=== PATIENT | female | born 1985 | race Caucasian/White ===

== ENCOUNTER → 2016-11-01 | Outpatient (CLI) | payer BC | END | disposition home or self-care (01) | LOC: LABWHC1 17:26 | PROVIDERS: ATTEND Internal Medicine Endocrinology, Diabetes & Metabolism | DX: E03.8 Other specified hypothyroidism (principal) | CPT/HCPCS: 36415; 84439; 84443; 86376 ==

== ENCOUNTER → 2017-05-16 | Outpatient (CLI) | payer BC ==
[2017-05-16 18:28] LABS: ALT 35 U/L (9-52); AST 21 U/L (14-36); Alkaline Phosphatase 75 U/L (38-126); Anion Gap 9 mmol/L; Blood Urea Nitrogen 8 mg/dL (7-17); Calcium 9.4 mg/dL (8.4-10.2); Carbon Dioxide 26 mmol/L (22-30); Chloride 103 mmol/L (98-107); Cholesterol 174 mg/dL (<200); Glucose 136 mg/dL (74-99); HDL Cholesterol 54 mg/dL (40-60); Non-African American GFR(MDRD) >60 (>60 ml/min/1.73 sqM); Potassium 4.1 mmol/L (3.5-5.1); Sodium 138 mmol/L (137-145); Total Bilirubin 0.6 mg/dL (0.2-1.3); Total Protein 7.4 g/dL (6.3-8.2)
[2017-05-17 03:35] LABS: Urine Creatinine 110.6 mg/dL
== END | disposition home or self-care (01) ==
LOC: LABWHC1 17:13
PROVIDERS: ATTEND Internal Medicine Endocrinology, Diabetes & Metabolism
DX: E10.65 Type 1 diabetes mellitus with hyperglycemia (principal); E03.8 Other specified hypothyroidism
CPT/HCPCS: 36415; 80053; 80061; 82043; 82570; 84443

== ENCOUNTER → 2018-02-15 | Outpatient (CLI) | payer BC ==
[2018-02-15 06:59] LABS: ALT 21 U/L (9-52); AST 15 U/L (14-36); Albumin 4.1 g/dL (3.5-5.0); Alkaline Phosphatase 69 U/L (38-126); Anion Gap 9 mmol/L; Blood Urea Nitrogen 8 mg/dL (7-17); Calcium 9.3 mg/dL (8.4-10.2); Carbon Dioxide 27 mmol/L (22-30); Chloride 102 mmol/L (98-107); Cholesterol 166 mg/dL (<200); Glucose 178 mg/dL (74-99); HDL Cholesterol 62 mg/dL (40-60); LDL Cholesterol,Calculated 85 mg/dL (0-99); Potassium 4.5 mmol/L (3.5-5.1); Sodium 138 mmol/L (137-145); Total Bilirubin 0.4 mg/dL (0.2-1.3); Triglycerides 94 mg/dL (<150)
[2018-02-15 12:53] LABS: Hemoglobin A1C 7.5 % (4.0-6.0)
== END | disposition home or self-care (01) ==
LOC: LABWHC1 06:32
PROVIDERS: ATTEND Internal Medicine Endocrinology, Diabetes & Metabolism
DX: E10.65 Type 1 diabetes mellitus with hyperglycemia (principal); E03.8 Other specified hypothyroidism
CPT/HCPCS: 36415; 80053; 80061; 82043; 82570; 83036; 84443

== ENCOUNTER → 2018-03-02 | Outpatient (CLI) | payer BC ==
[2018-03-02 12:28] LABS: Appearance,Urine Cloudy (Clear); Bacteria,Urine Rare /hpf; Bilirubin,Urine Negative (Negative); Blood,Urine Negative (Negative); Color,Urine Yellow; Glucose,Urine (UA) 3+ (Negative); Ketones,Urine Trace (Negative); Leukocyte Esterase,Urine Large (Negative); Mucus,Urine Rare /hpf; Nitrite,Urine Positive (Negative); Protein,Urine Trace (Negative); RBC,Urine 1 /hpf (0-5); Specific Gravity,Urine 1.015 (1.001-1.035); Squamous Epithelial Cell,Urine 3 /hpf (0-4); Urobilinogen,Urine <2.0 mg/dL (<2.0); WBC,Urine 4 /hpf (0-5)
[2018-03-02 16:20] LABS: Urine Alcohol Negative (Negative); Urine Barbiturate Negative (Negative); Urine Cocaine Negative (Negative); Urine Methadone Negative (Negative); Urine Opiates Negative (Negative); Urine Phencyclidine Negative (Negative)
[2018-03-03 14:39] LABS: C. trachomatis,PCR Negative (Neg,Equiv); Chlamydia trachomatis Source Urine; N. gonorrhoeae,PCR Negative (Neg,Equiv); Neisseria Source Urine
[2018-03-04 04:04] LABS: Herpes simplex I and/or II IgM 0.64 INDEX (<=0.90); Herpes simplex IgG I Ab 0.05 (< or = 0.90); Herpes simplex IgG II Ab 0.15 (< or = 0.90)
[2018-03-04 04:29] LABS: Lead, Blood <0.5 ug/dL (<5.0)
[2018-03-04 12:37] LABS: HIV AB P24 Non-Reactive (Non-Reactive); HIV P24 AG Non-Reactive (Non-Reactive)
== END | disposition home or self-care (01) ==
LOC: LABWHC1 11:54
PROVIDERS: ATTEND Obstetrics & Gynecology
DX: Z11.3 Encounter for screening for infections with a predominantly sexual mode of transmission (principal); Z33.1 Pregnant state, incidental
CPT/HCPCS: 36415; 80306; 81001; 82947; 83655; 84443; 84702; 86694; 86695; 86696; 86787; 87086; 87390; 87491; 87591

== ENCOUNTER → 2018-03-16 | Outpatient (CLI) | payer BC ==
[2018-03-16 10:39] LABS: Collection Time,Urine 24 hrs; Total Volume 24 Hour,Urine 1650 mls (800-1800)
[2018-03-16 10:55] LABS: Total Protein 24 Hour,Urine 231 mg/24hr (42.0-225.0)
[2018-03-16 10:56] LABS: Creatinine 24 Hour,Urine 1148.4 mg/24hr (800.0-1800.0)
[2018-03-16 11:21] LABS: Creatinine 24 Hour,Urine 1148.4 mg/24hr (800.0-1800.0)
== END | disposition home or self-care (01) ==
LOC: LABWHC1 10:21
PROVIDERS: ATTEND Obstetrics & Gynecology
DX: O24.019 Pre-existing type 1 diabetes mellitus, in pregnancy, unspecified trimester (principal); Z3A.00 Weeks of gestation of pregnancy not specified
CPT/HCPCS: 36415; 81050; 82570; 82575; 84156; 84450; 84460

== ENCOUNTER → 2018-04-01 | Outpatient (CLI) | payer BC ==
[2018-04-01 13:43] LABS: Hemoglobin A1C 6.1 % (4.0-6.0)
== END | disposition home or self-care (01) ==
LOC: LABWHC1 07:16
PROVIDERS: ATTEND Internal Medicine Endocrinology, Diabetes & Metabolism
DX: E10.65 Type 1 diabetes mellitus with hyperglycemia (principal)
CPT/HCPCS: 36415; 83036; 84443

== ENCOUNTER → 2018-05-06 | Outpatient (CLI) | payer BC | END | disposition home or self-care (01) | LOC: LABWHC1 16:23 | PROVIDERS: ATTEND Internal Medicine Endocrinology, Diabetes & Metabolism | DX: E10.65 Type 1 diabetes mellitus with hyperglycemia (principal) | CPT/HCPCS: 36415; 84443 ==

== ENCOUNTER → 2018-07-01 | Outpatient (CLI) | payer BC | END | disposition home or self-care (01) | LOC: LABWHC1 12:56 | PROVIDERS: ATTEND Internal Medicine Endocrinology, Diabetes & Metabolism | DX: E10.65 Type 1 diabetes mellitus with hyperglycemia (principal) | CPT/HCPCS: 36415; 83036 ==

== ENCOUNTER → 2018-08-06 | Outpatient (CLI) | payer BC ==
[2018-08-07 05:02] LABS: Hemoglobin A1C 5.9 % (4.0-6.0)
== END | disposition home or self-care (01) ==
LOC: LABWHC1 16:31
PROVIDERS: ATTEND Internal Medicine Endocrinology, Diabetes & Metabolism
DX: E03.8 Other specified hypothyroidism (principal); E10.65 Type 1 diabetes mellitus with hyperglycemia
CPT/HCPCS: 36415; 83036; 84443

== ENCOUNTER → 2018-08-15 | Outpatient (CLI) | payer BC ==
[2018-08-15 15:15] LABS: Basophils % (A) 0 %; Eosinophils # (A) 0.1 k/uL (0-0.7); Eosinophils % (A) 1 %; HCT 33.5 % (34.0-46.0); HGB 10.9 gm/dL (11.4-16.0); Lymphocytes # (A) 1.6 k/uL (1.0-4.8); Lymphocytes % (A) 17 %; MCHC 32.5 g/dL (31.0-37.0); MCV 98.5 fL (80.0-100.0); Macrocytosis Slight; Mean Platelet Volume 8.2; Monocytes # (A) 0.5 k/uL (0-1.0); Monocytes % (A) 5 %; Neutrophils # (A) 7.1 k/uL (1.3-7.7); Neutrophils % (A) 75 %; Platelet Count 208 k/uL (150-450); Poikilocytosis Slight; WBC 9.5 k/uL (3.8-10.6)
[2018-08-15 19:41] LABS: Total Volume 24 Hour,Urine 2025 mL
[2018-08-15 20:15] LABS: Creatinine 24 Hour,Urine 1.03 g/24Hr (0.80-1.80)
== END | disposition home or self-care (01) ==
LOC: LABWHC1 14:46
PROVIDERS: ATTEND Obstetrics & Gynecology
DX: O13.9 Gestational [pregnancy-induced] hypertension without significant proteinuria, unspecified trimester (principal); Z3A.00 Weeks of gestation of pregnancy not specified
CPT/HCPCS: 36415; 81050; 82565; 82570; 84156; 84450; 84460; 84520; 85025

== ENCOUNTER → 2019-02-07 | Outpatient (CLI) | payer BC ==
[2019-02-07 17:23] LABS: Albumin 4.2 g/dL (3.80-4.90); Albumin/Globulin Ratio 1.75 (1.60-3.17); Anion Gap 8.3 mmol/L (4.00-12.00); Calcium 9.4 mg/dL (8.7-10.3); Carbon Dioxide 25.7 mmol/L (21.6-31.8); Globulin 2.4 g/dL (1.6-3.3); LDL Cholesterol,Calculated 90.6 mg/dL (0.0-131.0); Potassium 4.3 mmol/L (3.5-5.5); Total Bilirubin 0.5 mg/dL (0.2-1.2); Total Protein 6.6 g/dL (6.2-8.2); VLDL Calculation 18.4 mg/dL (5.00-40.00)
[2019-02-07 19:11] LABS: Hemoglobin A1C 8.4 % (4.0-6.0)
== END | disposition home or self-care (01) ==
LOC: LABWHC1 10:26
PROVIDERS: ATTEND Internal Medicine Endocrinology, Diabetes & Metabolism
DX: E10.65 Type 1 diabetes mellitus with hyperglycemia (principal)
CPT/HCPCS: 36415; 80053; 80061; 82043; 82570; 83036; 84443

== ENCOUNTER → 2019-06-03 | Outpatient (CLI) | payer BC ==
[2019-06-03 17:47] LABS: Hemoglobin A1C 6.2 % (4.0-6.0)
== END | disposition home or self-care (01) ==
LOC: LABWHC1 07:17
PROVIDERS: ATTEND Internal Medicine Endocrinology, Diabetes & Metabolism
DX: E10.65 Type 1 diabetes mellitus with hyperglycemia (principal)
CPT/HCPCS: 36415; 83036; 84443

== ENCOUNTER → 2019-09-14 | Outpatient (CLI) | payer BC | END | disposition home or self-care (01) | LOC: LABMAIN 14:59 | PROVIDERS: ATTEND Internal Medicine Endocrinology, Diabetes & Metabolism | DX: Z53.9 Procedure and treatment not carried out, unspecified reason (principal) ==

== ENCOUNTER → 2020-03-02 | Outpatient (CLI) | payer BC ==
[2020-03-02 16:51] LABS: African American GFR (CKD) 132.9 (60.0-200.0); Albumin 4.2 g/dL (3.80-4.90); Albumin/Globulin Ratio 1.56 (1.60-3.17); Anion Gap 7.4 mmol/L (4.00-12.00); BUN/Creat Ratio 17.14 Ratio (12.00-20.00); Calcium 8.8 mg/dL (8.7-10.3); Carbon Dioxide 23.6 mmol/L (21.6-31.8); Chol/HDL Ratio 3.53; Globulin 2.7 g/dL (1.6-3.3); LDL Cholesterol,Calculated 113.8 mg/dL (0.0-131.0); Non-African American GFR(CKD) 114.6 (60.0-200.0); Total Bilirubin 0.3 mg/dL (0.3-1.2); Total Protein 6.9 g/dL (6.2-8.2); VLDL Calculation 20.2 mg/dL (5.00-40.00)
[2020-03-02 18:31] LABS: Urine Creatinine 26.3 mg/dL
[2020-03-02 20:31] LABS: Hemoglobin A1C 8.7 % (4.0-6.0)
== END | disposition home or self-care (01) ==
LOC: LABWHC1 09:03
PROVIDERS: ATTEND Internal Medicine Endocrinology, Diabetes & Metabolism
DX: E10.65 Type 1 diabetes mellitus with hyperglycemia (principal); E03.8 Other specified hypothyroidism
CPT/HCPCS: 36415; 80053; 80061; 82043; 82570; 83036; 84443

== ENCOUNTER → 2020-06-01 | Outpatient (CLI) | payer BC ==
[2020-06-01 19:09] LABS: Hemoglobin A1C 9.6 % (4.0-6.0)
[2020-06-01 19:57] LABS: African American GFR (CKD) 113.1 (60.0-200.0); Albumin 4.3 g/dL (3.80-4.90); Albumin/Globulin Ratio 1.72 (1.60-3.17); Anion Gap 8.5 mmol/L (4.00-12.00); BUN/Creat Ratio 18.75 Ratio (12.00-20.00); Calcium 8.6 mg/dL (8.7-10.3); Carbon Dioxide 24.5 mmol/L (21.6-31.8); Chol/HDL Ratio 4.07; Globulin 2.5 g/dL (1.6-3.3); LDL Cholesterol,Calculated 145.8 mg/dL (0.0-131.0); Non-African American GFR(CKD) 97.6 (60.0-200.0); Potassium 4.1 mmol/L (3.5-5.5); Total Bilirubin 0.5 mg/dL (0.3-1.2); Total Protein 6.8 g/dL (6.2-8.2); VLDL Calculation 29.2 mg/dL (5.00-40.00)
[2020-06-01 23:04] LABS: Urine Creatinine 150.9 mg/dL
== END | disposition home or self-care (01) ==
LOC: LABWHC1 08:36
PROVIDERS: ATTEND Internal Medicine Endocrinology, Diabetes & Metabolism
DX: E10.65 Type 1 diabetes mellitus with hyperglycemia (principal); E03.8 Other specified hypothyroidism
CPT/HCPCS: 36415; 80053; 80061; 82043; 82570; 83036; 84443

== ENCOUNTER → 2020-09-08 | Outpatient (CLI) | payer BC ==
[2020-09-08 22:00] LABS: Hemoglobin A1C 7.2 % (4.0-6.0)
== END | disposition home or self-care (01) ==
LOC: LABWHC1 13:47
PROVIDERS: ATTEND Internal Medicine Endocrinology, Diabetes & Metabolism
DX: E10.65 Type 1 diabetes mellitus with hyperglycemia (principal)
CPT/HCPCS: 36415; 83036; 84443

== ENCOUNTER → 2021-03-31 | Outpatient (CLI) | payer BC ==
[2021-03-31 14:03] LABS: African American GFR (CKD) 131.9 (60.0-200.0); Albumin 4.1 g/dL (3.80-4.90); Albumin/Globulin Ratio 1.37 (1.60-3.17); Anion Gap 4.6 mmol/L (4.00-12.00); BUN/Creat Ratio 12.86 Ratio (12.00-20.00); Carbon Dioxide 25.4 mmol/L (21.6-31.8); Chol/HDL Ratio 4.12; LDL Cholesterol,Calculated 107.4 mg/dL (0.0-131.0); Non-African American GFR(CKD) 113.8 (60.0-200.0); Potassium 4.4 mmol/L (3.5-5.5); Total Bilirubin 0.4 mg/dL (0.2-1.2); Total Protein 7.1 g/dL (6.2-8.2); VLDL Calculation 26.6 mg/dL (5.00-40.00)
[2021-03-31 14:24] LABS: Urine Creatinine 164.4 mg/dL
[2021-03-31 16:06] LABS: Hemoglobin A1C 7.6 % (4.0-6.0)
== END | disposition home or self-care (01) ==
LOC: LABWHC1 07:11
PROVIDERS: ATTEND Internal Medicine Endocrinology, Diabetes & Metabolism
DX: E10.65 Type 1 diabetes mellitus with hyperglycemia (principal)
CPT/HCPCS: 36415; 80053; 80061; 82043; 82570; 83036; 84443

== ENCOUNTER → 2021-11-04 | Outpatient (CLI) | payer BC ==
[2021-11-04 12:05] LABS: ALT 14 U/L (8-44); AST 18 U/L (13-35); Albumin 4.1 g/dL (3.8-4.9); Albumin/Globulin Ratio 1.37 (1.60-3.17); Alkaline Phosphatase 75 U/L (41-126); BUN/Creat Ratio 18.14 Ratio (12.00-20.00); Blood Urea Nitrogen 12.7 mg/dL (9.0-27.0); Calcium 9.3 mg/dL (8.7-10.3); Carbon Dioxide 25.5 mmol/L (20.0-27.5); Chloride 103 mmol/L (96-109); Chol/HDL Ratio 3.63 Ratio; Glucose 200 mg/dL (70-110); LDL Cholesterol,Calculated 122.4 mg/dL (0.0-131.0); Potassium 4.7 mmol/L (3.5-5.5); Sodium 140 mmol/L (135-145); Total Protein 7.1 g/dL (6.2-8.2); VLDL Calculation 19.56 mg/dL (5.00-40.00)
[2021-11-04 17:37] LABS: Urine Creatinine 70.3 mg/dL (28.0-217.0)
== END | disposition home or self-care (01) ==
LOC: LABWHC1 08:38
PROVIDERS: ATTEND Internal Medicine Endocrinology, Diabetes & Metabolism
DX: E10.65 Type 1 diabetes mellitus with hyperglycemia (principal)
CPT/HCPCS: 36415; 80053; 80061; 82043; 82570; 83036; 84443

== ENCOUNTER → 2022-10-12 | Outpatient (CLI) | payer BC, OTHER ==
[2022-10-12 18:55] LABS: ALT 13 U/L (8-44); AST 17 U/L (13-35); African American GFR (CKD) 135.4 (60.0-200.0); Albumin 4.2 g/dL (3.8-4.9); Alkaline Phosphatase 86 U/L (41-126); BUN/Creat Ratio 12.29 Ratio (12.00-20.00); Blood Urea Nitrogen 7.6 mg/dL (9.0-27.0); Calcium 8.7 mg/dL (8.7-10.3); Carbon Dioxide 23.3 mmol/L (20.0-27.5); Chloride 103 mmol/L (96-109); Chol/HDL Ratio 4.03 Ratio; Glucose 175 mg/dL (70-110); LDL Cholesterol,Calculated 80.1 mg/dL (0.0-131.0); Non-African American GFR(CKD) 116.8 (60.0-200.0); Potassium 4.2 mmol/L (3.5-5.5); Sodium 138 mmol/L (135-145); Total Protein 7.2 g/dL (6.2-8.2)
[2022-10-13 00:01] LABS: Urine Creatinine 75.1 mg/dL (28.0-217.0)
== END | disposition home or self-care (01) ==
LOC: LABWHC1 12:38
PROVIDERS: ATTEND Internal Medicine Endocrinology, Diabetes & Metabolism
DX: E10.65 Type 1 diabetes mellitus with hyperglycemia (principal); E03.8 Other specified hypothyroidism
CPT/HCPCS: 36415; 80053; 80061; 82043; 82570; 83036; 84443

== ENCOUNTER → 2023-06-13 | Outpatient (CLI) | payer BC, OTHER | END | disposition home or self-care (01) | LOC: LABWHC1 15:45 | PROVIDERS: ATTEND Internal Medicine Endocrinology, Diabetes & Metabolism | DX: E03.8 Other specified hypothyroidism (principal) | CPT/HCPCS: 36415; 84443 ==

== ENCOUNTER → 2023-10-01 | Outpatient (CLI) | payer OTHER ==
[2023-10-01 16:34] LABS: ALT 17 U/L (8-44); AST 14 U/L (13-35); Albumin 4.2 g/dL (3.8-4.9); Albumin/Globulin Ratio 1.56 Ratio (1.60-3.17); Alkaline Phosphatase 78 U/L (41-126); BUN/Creat Ratio 9.71 Ratio (12.00-20.00); Blood Urea Nitrogen 6.8 mg/dL (9.0-27.0); Carbon Dioxide 25.5 mmol/L (21.6-31.8); Chloride 102 mmol/L (96-109); Chol/HDL Ratio 3.34 Ratio; Globulin 2.7 g/dL (1.6-3.3); Glucose 172 mg/dL (70-110); LDL Cholesterol,Calculated 82.9 mg/dL (0.0-131.0); Potassium 4.8 mmol/L (3.5-5.5); Sodium 137 mmol/L (135-145); Total Bilirubin 0.2 mg/dL (0.3-1.2); Total Protein 6.9 g/dL (6.2-8.2)
== END | disposition home or self-care (01) ==
LOC: LABWHC1 11:56
PROVIDERS: ATTEND Internal Medicine Endocrinology, Diabetes & Metabolism
DX: E10.65 Type 1 diabetes mellitus with hyperglycemia (principal); E03.8 Other specified hypothyroidism
CPT/HCPCS: 36415; 80053; 80061; 82043; 82570; 83036; 84443

== ENCOUNTER → 2024-05-26 | Outpatient (CLI) | payer OTHER ==
[2024-05-26 21:43] LABS: ALT 17 U/L (8-44); AST 22 U/L (13-35); Albumin 4.5 g/dL (3.8-4.9); Alkaline Phosphatase 99 U/L (41-126); BUN/Creat Ratio 13.71 Ratio (12.00-20.00); Blood Urea Nitrogen 9.6 mg/dL (9.0-27.0); Calcium 9.1 mg/dL (8.7-10.3); Carbon Dioxide 23.2 mmol/L (21.6-31.8); Chloride 103 mmol/L (96-109); Chol/HDL Ratio 4.25 Ratio; Glucose 187 mg/dL (70-110); LDL Cholesterol,Calculated 138.5 mg/dL (0.0-131.0); Potassium 4.4 mmol/L (3.5-5.5); Sodium 137 mmol/L (135-145); Total Bilirubin 0.6 mg/dL (0.3-1.2); Total Protein 7.5 g/dL (6.2-8.2)
== END | disposition home or self-care (01) ==
LOC: LABWHC1 14:00
PROVIDERS: ATTEND Internal Medicine Endocrinology, Diabetes & Metabolism
DX: E10.65 Type 1 diabetes mellitus with hyperglycemia
CPT/HCPCS: 36415; 80053; 80061; 82043; 82570; 83036; 84443

== ENCOUNTER → 2024-11-03 | Outpatient (CLI) | payer BC ==
[2024-11-03 15:25] LABS: Blood Urea Nitrogen 6.9 mg/dL (9.0-27.0); Glucose 155 mg/dL (70-110)
[2024-11-03 15:26] LABS: ALT 16 U/L (8-44); AST 19 U/L (13-35); Albumin 3.8 g/dL (3.8-4.9); Albumin/Globulin Ratio 1.36 Ratio (1.60-3.17); Alkaline Phosphatase 75 U/L (41-126); Calcium 9.1 mg/dL (8.7-10.3); Carbon Dioxide 24.5 mmol/L (21.6-31.8); Chloride 100 mmol/L (96-109); Globulin 2.8 g/dL (1.6-3.3); Potassium 4.3 mmol/L (3.5-5.5); Sodium 135 mmol/L (135-145); Total Bilirubin <0.2 mg/dL (0.3-1.2); Total Protein 6.6 g/dL (6.2-8.2)
== END | disposition home or self-care (01) ==
LOC: LABWHC1 09:35
PROVIDERS: ATTEND Internal Medicine Endocrinology, Diabetes & Metabolism
DX: E10.65 Type 1 diabetes mellitus with hyperglycemia (principal); E03.8 Other specified hypothyroidism
CPT/HCPCS: 36415; 80053; 83036; 84443

== ENCOUNTER → 2024-12-12 | Outpatient (CLI) | payer BC, OTHER ==
[2024-12-12 16:42] LABS: T4, Free (Free Thyroxine) 1.23 ng/dL (0.80-1.80)
== END | disposition home or self-care (01) ==
LOC: LABWHC1 12:01
PROVIDERS: ATTEND Internal Medicine Endocrinology, Diabetes & Metabolism
DX: E10.65 Type 1 diabetes mellitus with hyperglycemia (principal); E03.8 Other specified hypothyroidism
CPT/HCPCS: 36415; 83036; 84439; 84443

== ENCOUNTER → 2025-01-15 | Outpatient (CLI) | payer BC, OTHER ==
[2025-01-15 16:17] LABS: T4, Free (Free Thyroxine) 0.99 ng/dL (0.80-1.80)
== END | disposition home or self-care (01) ==
LOC: LABWHC1 09:45
PROVIDERS: ATTEND Internal Medicine Endocrinology, Diabetes & Metabolism
DX: E10.65 Type 1 diabetes mellitus with hyperglycemia (principal); E03.8 Other specified hypothyroidism
CPT/HCPCS: 36415; 83036; 84439; 84443; 84481

== ENCOUNTER 2025-03-04 15:23 | Outpatient (CLI) | payer BC, OTHER ==
[2025-03-04] MEDS: LACTATED RINGERS 1,000 ML IV ONE (16:51)
[2025-03-04 17:54] VITALS: BP 137/90; PULSE 88; RESP 16; TEMP 97.5
== END 2025-03-04 17:44 | disposition home or self-care (01) ==
LOC: FBPOP 15:23
PROVIDERS: ATTEND Obstetrics & Gynecology
DX: Z34.93 Encounter for supervision of normal pregnancy, unspecified, third trimester (principal); Z3A.33 33 weeks gestation of pregnancy
CPT/HCPCS: 59025; 96360; G0463; 99214

== ENCOUNTER → 2025-03-20 | Outpatient (CLI) | payer BC, OTHER | END | disposition home or self-care (01) | LOC: LABWHC1 12:00 | PROVIDERS: ATTEND Internal Medicine Endocrinology, Diabetes & Metabolism | DX: E10.65 Type 1 diabetes mellitus with hyperglycemia (principal); E03.8 Other specified hypothyroidism | CPT/HCPCS: 36415; 83036; 84443 ==

== ENCOUNTER 2025-04-01 12:38 | Inpatient (IN) | payer BC, OTHER ==
[2025-04-01 13:16] LABS: Bilirubin,Urine Negative (Negative); Blood,Urine Negative (Negative); Color,Urine Colorless; Glucose,Urine (UA) Negative (Negative); Ketones,Urine Negative (Negative); Leukocyte Esterase,Urine Negative (Negative); Nitrite,Urine Negative (Negative); PH, Urine 7.0 (5.0-8.0); Protein,Urine Negative (Negative); Specific Gravity,Urine 1.003 (1.001-1.035); Urobilinogen,Urine <2.0 mg/dL (<2.0)
[2025-04-01 13:26] LABS: Basophils # (A) 0.05 10*3/uL (0.00-0.10); Basophils % (A) 0.5 %; Eosinophils # (A) 0.03 10*3/uL (0.04-0.35); Eosinophils % (A) 0.3 %; HCT 34.7 % (37.2-46.3); HGB 11.6 g/dL (12.0-15.0); Lymphocytes # (A) 1.93 10*3/uL (0.90-5.00); Lymphocytes % (A) 21.0 %; MCH 32.2 pg (27.0-32.0); MCHC 33.4 g/dL (32.0-37.0); MCV 96.4 fL (80.0-97.0); Monocytes # (A) 0.86 10*3/uL (0.20-1.00); Monocytes % (A) 9.4 %; Neutrophils # (A) 6.24 10*3/uL (1.80-7.70); Neutrophils % (A) 68.0 %; Platelet Count 170 10*3/uL (140-440); RBC 3.60 10*6/uL (4.10-5.20); RDW 16.0 % (11.5-14.5); WBC 9.18 10*3/uL (4.50-10.00)
[2025-04-01 13:34] LABS: Protein/Creatinine Ratio,Urine 0.656
[2025-04-01 13:47] LABS: ALT 18 U/L (4-34); AST 29 U/L (14-36); African American GFR (CKD) >90 (>60 ml/min/1.73 sqM); Blood Urea Nitrogen 9 mg/dL (7-17); LDH 247 U/L (120-246); Non-African American GFR(CKD) >90 (>60 ml/min/1.73 sqM); Uric Acid 5.6 mg/dL (3.7-7.4)
[2025-04-01] MEDS ORDERED: OXYTOCIN 10 UNIT/ML 1 ML VIAL IM PRN (14:02)
[2025-04-01] MEDS ORDERED: CARBOPROST TROMETHAMINE 250 MCG/ML 1 ML AMP IM PRN (14:02)
[2025-04-01] MEDS ORDERED: TRANEXAMIC 1,000 MG/100ML-NACL 1,000 MG in EMPTY BAG 1 BAG IV PRN (14:02)
[2025-04-01] MEDS ORDERED: TERBUTALINE 1 MG/ML VIAL SQ PRN (14:02)
[2025-04-01] MEDS ORDERED: LIDOCAINE 0.5% (PF) 5 MG/ML (50 ML SDV) SQ PRN (14:02)
[2025-04-01] MEDS ORDERED: METHYLERGONOVINE 0.2 MG/ML 1 ML AMP IM PRN (14:02)
[2025-04-01 14:08] LABS: Glucose,Whole Blood 58 mg/dL (70-110)
[2025-04-01] MEDS: LACTATED RINGERS 1,000 ML IV SCH (14:13)
[2025-04-01] MEDS: OXYTOCIN 30 UNITS/500 ML NS 30 UNIT in SALINE 1 500ML.BAG IV SCH (14:13)
--- NOTE | 2025-04-01 14:14 | P.HPOB ---
History of Present Illness H&P Date: 04/01/25 Chief Complaint: Medical induction of labor 39 year old at 37 weeks and 4 days with EDC of 04/18/2025 by 12 week US for medical induction of labor for newly diagnosed pre-eclampsia without severe features Type I diabetes mellitus, and polyhydramnios with SADIQ of 38. Blood pressure sare mild range and PIH labs are within normal limits except for proteinuria with a P:C urine of 0.7. She has been followed by endocrinology and MFM throughout the . The fetus is estimated in the 98%ile for gestational age based on a 32 week growth US. ECHO was within normal limits. The patient is Rh negative and has received Rhogam at 28 weeks. Finally, the patient has hypothyroidism for which she follows with endocrinology. work-up: blood type O negative, antibody screen negative, rubella immune, VDRL non-reactive, HBsAg negative, HIV negative, HCVnon-reactive, GBS negative. Obstetric history: 3 FTVD, first complicated by shoulder dystocia with the first delivery Past Medical History History of Any Multi-Drug Resistant Organisms: None Reported Smoking Status: Never smoker Medications and Allergies Home Medications Medication Instructions Recorded Confirmed Type Ascorbic Acid [Vitamin C] 1,000 mg PO DAILY 03/04/25 04/01/25 History Aspirin [[place] Aspirin EC] 81 mg PO DAILY 03/04/25 04/01/25 History Ferrous Sulfate [Feosol] 325 mg PO DAILY 03/04/25 04/01/25 History Folic Acid 1 mg PO DAILY 03/04/25 04/01/25 History INSULIN ASPART (NovoLOG) [NovoLOG 100 unit SQ-PUMP DAILY MDD 100 03/04/25 04/01/25 History (formulary)] Levothyroxine Sodium [Synthroid] 175 mcg PO DAILY 03/04/25 04/01/25 History Vit No.179/Iron/Folic 1 each PO DAILY 03/04/25 04/01/25 History [ Tablet] Allergies Allergy/AdvReac Type Severity Reaction Status Date / Time Penicillins Allergy Rash/Hives Verified 04/01/25 12:50 Sulfa (Sulfonamide Allergy Rash/Hives Verified 03/04/25 15:50 Antibiotics) Exam Intake and Output 03/31/25 04/01/25 04/01/25 22:59 06:59 14:59 Other: Weight 119.295 kg Focused physical exam is performed. This is a healthy-appearing in no apparent distress. Breathing is non-labored. Abdomen is gravid and non-tender. Cervical exam is 5/70/-1. AROM is undertaken with clear fluid noted. Extremities non-tender and non-edematous. heart tones are Category I and tocometer is graphing irregular contractions. Results Result Diagrams: 04/01/25 13:05 04/01/25 13:05 Abnormal Lab Results - Last 24 Hours (Table) 04/01/25 04/01/25 Range/Units 13:05 13:05 RBC 3.60 L (4.10-5.20) 10*6/uL Hgb 11.6 L (12.0-15.0) g/dL Hct 34.7 L (37.2-46.3) % MCH 32.2 H (27.0-32.0) pg Immature Gran # 0.07 H (0.00-0.04) 10*3/uL Eosinophils # 0.03 L (0.04-0.35) 10*3/uL Lactate Dehydrogenase 247 H (120-246) U/L Assessment and Plan Assessment: 39 year old at 37 weeks and 4 days being medically induced for newly diagnosed pre-eclampsia without severe features, T1DM, and polyhydramnios Plan: Admit, clear liquid diet, q1 hour blood sugars, continuous EFM and tocometer, anticipate vaginal delivery
[2025-04-01 14:57] LABS: Glucose,Whole Blood 128 mg/dL (70-110)
[2025-04-01 15:59] LABS: Glucose,Whole Blood 92 mg/dL (70-110)
[2025-04-01 17:18] LABS: Glucose,Whole Blood 88 mg/dL (70-110)
--- NOTE | 2025-04-01 18:21 | P.PROBDLV ---
Vaginal Delivery Note - . Vaginal Delivery Note: DATE OF SERVICE: 04/01/2025 PROCEDURE: Vaginal Delivery ATTENDING: Dr. Cande Rouse MD ESTIMATED BLOOD LOSS: 100 mL FINDINGS: VMI, Apgars 5/8. Weight 12 pounds (5455 grams) PROCEDURE: Ms. Hernández is a 39 year old at 37 weeks and 4 days presenting to labor and delivery for medical induction of labor for Pre-eclampsia without severe features, T1DM, and polyhydramnios. For further details, please review the admitting H&P. Pitocin was titrated per protocol. AROM was undertaken at 1352 revealing clear amniotic fluid. The patient was completely dilated at 1745. The head was delivered. There was a shoulder dystocia. The patient was placed in Aron position, suprapubic pressure was applied, and the posterior arm was delivered to relieve the dystocia. A viable male was delivered at 1755. The was placed on the maternal abdomen and bulb suctioned. Cord was clamped and cut. The was handed off to the pediatric team. Placenta was delivered whole with gentle cord traction at 1758. Oxytocin was started to facilitate uterine tone. Uterine fundus was found to be firm and below the umbilicus upon fundal massage. Thorough examination of the cervix, vagina, periurethral area, and perineum revealed a very small second degree laceration. The perineum was infiltrated with lidocaine and repaired woth 3-0 Vicryl in the usual fashion. The patient is stable and allowed to begin the bonding process.
[2025-04-01] MEDS ORDERED: ZOLPIDEM 5 MG TAB PO PRN (18:22)
[2025-04-01] MEDS ORDERED: LANOLIN CREAM 1 GM TUBE TOPICAL PRN (18:22)
[2025-04-01] MEDS ORDERED: BENZOCAINE/MENTHOL SPRAY 1 GM/SPRAY AEROSOL TOPICAL PRN (18:22)
[2025-04-01] MEDS ORDERED: diphenhydrAMINE 50 MG/ML 1 ML VIAL IVP PRN ×2 (18:22)
[2025-04-01] MEDS ORDERED: diphenhydrAMINE 25 MG CAP PO PRN (18:22)
[2025-04-01] MEDS ORDERED: SIMETHICONE 80 MG CHEWABLE PO PRN (18:22)
[2025-04-01] MEDS ORDERED: HYDROCORTISONE 2.5% RECTAL CREAM 30 GM TUBE RECTAL PRN (18:22)
[2025-04-01] MEDS: LABETALOL 5 MG/ML VIAL MDV IVP STA (19:26)
[2025-04-01] MEDS: IBUPROFEN 800 MG TAB PO SCH (19:27)
[2025-04-01] MEDS: MAGNESIUM SULFATE GM 6 GM in SODIUM CHLORIDE 0.9% 100 ML IVPB ONE (19:38)
[2025-04-01] MEDS: MAGNESIUM SULFATE-WATER PMX 20 GM in WATER FOR INJECTION 1 500ML.BAG IV SCH (20:10)
[2025-04-01] MEDS: ACETAMINOPHEN TAB 500 MG TAB PO SCH (22:05)
[2025-04-01] MEDS: SENNOSIDES-DOCUSATE SODIUM 1 EACH TAB PO SCH (22:06)
[2025-04-01 23:07] LABS: Glucose,Whole Blood 312 mg/dL (70-110)
[2025-04-02 02:33] LABS: Glucose,Whole Blood 165 mg/dL (70-110)
[2025-04-02] MEDS: Rhogam IMMUNE GLOBULIN 1,500 UNIT/1 ML IM ONE (06:21)
[2025-04-02 07:21] LABS: Glucose,Whole Blood 122 mg/dL (70-110)
[2025-04-02 07:24] LABS: Basophils # (A) 0.04 10*3/uL (0.00-0.10); Basophils % (A) 0.3 %; Eosinophils # (A) 0.02 10*3/uL (0.04-0.35); Eosinophils % (A) 0.1 %; HCT 32.6 % (37.2-46.3); HGB 10.7 g/dL (12.0-15.0); Lymphocytes # (A) 2.10 10*3/uL (0.90-5.00); Lymphocytes % (A) 15.1 %; MCH 31.9 pg (27.0-32.0); MCHC 32.8 g/dL (32.0-37.0); MCV 97.3 fL (80.0-97.0); Monocytes # (A) 1.16 10*3/uL (0.20-1.00); Monocytes % (A) 8.3 %; Neutrophils # (A) 10.53 10*3/uL (1.80-7.70); Neutrophils % (A) 75.6 %; Platelet Count 160 10*3/uL (140-440); RBC 3.35 10*6/uL (4.10-5.20); RDW 16.1 % (11.5-14.5); WBC 13.94 10*3/uL (4.50-10.00)
--- NOTE | 2025-04-02 08:40 | P.PNOBGVD ---
Subjective - Subjective Principal diagnosis: s/p vaginal delivery Interval history: The patient is doing well this morning and had no acute events overnight. She has no complaints this morning. She reports minimal lochia, passing flatus, voiding without difficulty, ambulating, and eating/drinking without nausea or vomiting. She denies chest pain, shortness of breathing, fevers, or chills overnight. She denies pain or swelling in the legs. Patient reports: Reports appetite normal, Reports voiding normally, Reports pain well controlled, Reports ambulating normally : other (in nursery on supplemental oxygen and with blood glucose in stability) Objective - Latest Vital Signs Latest vital signs: Vital Signs Temp Pulse Resp BP Pulse Ox 04/02/25 08:00 78 18 117/80 04/02/25 07:00 97.5 F L 77 18 126/83 04/02/25 06:00 89 16 109/67 04/02/25 05:00 16 133/78 04/02/25 04:00 68 16 136/77 04/02/25 03:00 16 121/70 04/02/25 02:00 80 16 125/75 04/02/25 01:00 16 130/70 04/01/25 23:46 83 16 124/74 04/01/25 23:00 93 16 110/68 04/01/25 22:00 82 16 142/75 04/01/25 21:00 80 16 119/73 04/01/25 20:12 76 16 161/91 04/01/25 19:56 74 16 158/87 04/01/25 19:42 69 18 164/87 04/01/25 19:27 70 16 166/93 97 04/01/25 19:12 72 16 166/97 04/01/25 18:57 69 16 161/98 04/01/25 18:42 72 16 152/96 04/01/25 18:27 82 18 148/87 04/01/25 18:12 92 18 146/85 04/01/25 15:30 98.6 F 110 H 18 140/89 04/01/25 15:09 98.6 F 110 H 18 140/83 98 Intake and Output 04/01/25 04/02/25 04/02/25 22:59 06:59 14:59 Intake Total 500 50 Output Total 800 2000 Balance -800 -1500 50 Intake: Intake, IV Titration 500 50 Amount Magnesium Sulfate-Water 500 50 Pmx 20 gm In Water For Injection 1 500ml.bag @ 2 GM/HR 50 mls/hr IV .Q10H [facility] Rx#:[id number] Output: Urine 800 2000 Other: Weight 119.295 kg - Exam Extremities: Present: normal Abdomen: Present: normal appearance, soft Uterus: Present: normal, firm - Labs Labs: Abnormal Lab Results - Last 24 Hours (Table) 04/01/25 04/01/25 04/01/25 Range/Units 13:05 13:05 13:05 WBC (4.50-10.00) 10*3/uL RBC 3.60 L (4.10-5.20) 10*6/uL Hgb 11.6 L (12.0-15.0) g/dL Hct 34.7 L (37.2-46.3) % MCV (80.0-97.0) fL MCH 32.2 H (27.0-32.0) pg Immature Gran # 0.07 H (0.00-0.04) 10*3/uL Neutrophils # (1.80-7.70) 10*3/uL Monocytes # (0.20-1.00) 10*3/uL Eosinophils # 0.03 L (0.04-0.35) 10*3/uL POC Glucose (mg/dL) (70-110) mg/dL Hemoglobin A1c 6.9 H (<=6.0) % Lactate Dehydrogenase 247 H (120-246) U/L 04/01/25 04/01/25 04/01/25 Range/Units 14:07 14:55 23:06 WBC (4.50-10.00) 10*3/uL RBC (4.10-5.20) 10*6/uL Hgb (12.0-15.0) g/dL Hct (37.2-46.3) % MCV (80.0-97.0) fL MCH (27.0-32.0) pg Immature Gran # (0.00-0.04) 10*3/uL Neutrophils # (1.80-7.70) 10*3/uL Monocytes # (0.20-1.00) 10*3/uL Eosinophils # (0.04-0.35) 10*3/uL POC Glucose (mg/dL) 58 L 128 H 312 H (70-110) mg/dL Hemoglobin A1c (<=6.0) % Lactate Dehydrogenase (120-246) U/L 04/02/25 04/02/25 04/02/25 Range/Units 02:31 06:58 07:19 WBC 13.94 H (4.50-10.00) 10*3/uL RBC 3.35 L (4.10-5.20) 10*6/uL Hgb 10.7 L (12.0-15.0) g/dL Hct 32.6 L (37.2-46.3) % MCV 97.3 H (80.0-97.0) fL MCH (27.0-32.0) pg Immature Gran # 0.09 H (0.00-0.04) 10*3/uL Neutrophils # 10.53 H (1.80-7.70) 10*3/uL Monocytes # 1.16 H (0.20-1.00) 10*3/uL Eosinophils # 0.02 L (0.04-0.35) 10*3/uL POC Glucose (mg/dL) 165 H 122 H (70-110) mg/dL Hemoglobin A1c (<=6.0) % Lactate Dehydrogenase (120-246) U/L Assessment and Plan Assessment: 39 year old now PPD#1 s/p vaginal delivery Plan: 1. . Meeting milestones appropriately. 2. Pre-eclampsia with severe features. On Mag Sulfate for 24 hours. Continue to monitor BPs. 3. Type I DM. Labile blood sugars after delivery. Consult Medicine. 4. Viable male infant. In nursery for blood sugar control and on supplemental oxygen. Dispo: Continue inpatient management at this time.
[2025-04-02 11:34] LABS: Glucose,Whole Blood 74 mg/dL (70-110)
[2025-04-02 14:59] LABS: Glucose,Whole Blood 225 mg/dL (70-110)
[2025-04-02 18:57] LABS: Glucose,Whole Blood 150 mg/dL (70-110)
[2025-04-03] MEDS ORDERED: DEXTROSE 50% SYRINGE 50 ML IVP PRN ×2 (09:12)
--- NOTE | 2025-04-03 09:47 | P.PNOBGVD ---
Subjective - Subjective Principal diagnosis: s/p vaginal delivery Interval history: The patient is doing well this morning and had no acute events overnight. She has no complaints this morning. She reports minimal lochia, passing flatus, voiding without difficulty, ambulating, and eating/drinking without nausea or vomiting. She is breast pumping for her without difficulty. She denies chest pain, shortness of breathing, fevers, or chills overnight. She denies pain or swelling in the legs. Patient reports: Reports appetite normal, Reports voiding normally, Reports pain well controlled, Reports ambulating normally : other (in nursery on supplemental O2) Objective - Latest Vital Signs Latest vital signs: Vital Signs Temp Pulse Resp BP Pulse Ox 04/03/25 04:00 71 18 144/87 04/02/25 23:56 80 16 143/88 04/02/25 20:00 97.5 F L 85 18 127/80 04/02/25 19:00 86 18 135/79 04/02/25 18:00 93 18 126/84 04/02/25 16:54 83 136/87 04/02/25 16:00 83 18 136/87 04/02/25 15:00 82 18 135/81 04/02/25 14:00 86 18 119/74 04/02/25 13:00 18 117/74 04/02/25 12:00 80 118/78 04/02/25 11:00 97.1 F L 90 18 116/81 96 04/02/25 10:00 82 18 123/83 Intake and Output 04/02/25 04/03/25 04/03/25 22:59 06:59 14:59 Intake Total 798.333 Output Total 2200 Balance -1401.667 Intake: IV 150 Magnesium Sulfate-Water 150 Pmx 20 gm In Water For Injection 1 500ml.bag @ 2 GM/HR 50 mls/hr IV .Q10H [facility] Rx#:[id number] Intake, IV Titration 648.333 Amount Magnesium Sulfate-Water 648.333 Pmx 20 gm In Water For Injection 1 500ml.bag @ 2 GM/HR 50 mls/hr IV .Q10H [facility] Rx#:[id number] Output: Urine 2200 - Exam Extremities: Present: normal Abdomen: Present: normal appearance, soft Uterus: Present: normal, firm - Labs Labs: Abnormal Lab Results - Last 24 Hours (Table) 04/02/25 04/02/25 Range/Units 14:57 18:55 POC Glucose (mg/dL) 225 H 150 H (70-110) mg/dL Assessment and Plan Assessment: 39 year old now PPD#2 s/p vaginal delivery Plan: 1. . Meeting milestones appropriately. 2. Pre-eclampsia with severe features. s/p Mag Sulfate. Continue to monitor BPs. Mild range this morning 140s/80s. If 150s/90s persistently, will start antihypertensives. 3. Type I DM. Labile blood sugars after delivery. Consult Medicine. 4. Viable male infant. In nursery for blood sugar control and on supplemental oxygen. Dispo: Continue inpatient management at this time. Anticipate discharge home tomorrow.
[2025-04-03] MEDS: FERROUS SULFATE 325 MG TAB PO SCH (10:32)
[2025-04-03] MEDS: FOLIC ACID 1 MG TAB PO SCH (10:32)
[2025-04-03] MEDS: INSULIN ASPART 100 UNIT/ML MISCELLANE SCH (10:32)
[2025-04-03] MEDS: LEVOTHYROXINE 88 MCG TAB PO SCH (10:33)
[2025-04-03] MEDS: PRENATAL VIT-IRON-FOLIC ACID 1 EACH TABLET PO SCH (10:37)
--- NOTE | 2025-04-03 13:33 | P.CONS ---
History of Present Illness - Reason for Consult Consult date: 04/03/25 Medical Management of type I diabetes Requesting physician: Cande Rouse - History of Present Illness History of Presenting Illness: Patient is a very pleasant 39-year-old female with a past medical history of type 1 diabetes mellitus, hypothyroidism, and is a G-4, P-0, T-4, A-0, L-4 status post induced vaginal delivery on 04/02/2025 of a 12 pound 4 ounce baby boy. Patient reports she was treated for mild preeclampsia with slightly elevated blood pressures and proteinuria. We were consulted for management of patient's type 1 diabetes and hypothyroidism throughout hospitalization. Patient seen and fully evaluated this morning. She was visiting with her new born son in the special care nursery. She currently reports feeling well and denies having any headache, lightheadedness, dizziness, chest pain, palpitations, shortness of breath, cough or congestion, nausea, vomiting, or any other complaints. Patient reports mild swelling remains in her lower ext remities but denies pain or discomfort. She states appetite is good and she is tolerating oral intake. Patient reports ambulating without any difficulties since discontinuation of magnesium infusion. Patient reports urinating without any difficulty and states she has not yet had a bowel movement since delivery. Vital signs reviewed. Blood pressure 142/89, heart rate 78, respiratory rate 18, temp 97.6 F, and SpO2 of 97% on room air. Labs reviewed. CBC showing mild leukocytosis with WBC count of 13.94 and stable anemia with hemoglobin of 10.7. Blood glucose levels have ranged from [address] up to 312 over the past 24 hours. BUN 9, creatinine 0.56 and GFR greater than 90. Hemoglobin A1c 6.9%. Liver profile normal findings with exception of elevated LDH of 247. Urinalysis negative for infection. Review of systems: Pertinent positives and negatives as discussed in HPI, a complete review of systems was performed and all other systems are negative. Physical exam: Vital signs reviewed and stable. General: Nontoxic, no distress and appears stated age. Derm: Skin warm and dry, normal coloration for ethnicity. Head: Atraumatic, normocephalic and symmetric. Eyes: EOM's intact, no lid lag, and anicteric sclera Mouth: no lip lesions, mucus membranes moist Cardiovascular: regular rate and rhythm with normal S1S2, no murmur, positive posterior tibial pulses bilaterally, and cap refill < 2 seconds. Lungs: Respirations even, regular, and unlabored on room air. Lungs CTA bilaterally, no rhonchi, no rales, no wheezing, and no accessory muscle usage. Abdominal: abdomen, soft distended 1+ pitting bilateral lower extremity Ext: ROM intact. No gross muscle atrophy, 1+ pitting bilateral lower extremity e claudio, no contractures Neuro: Speech clear, face symmetrical and CN II-XII grossly intact with no noted focal neuro deficits Psych: Alert and oriented to person, place, time, and situation. Appropriate and pleasant affect. Assessment and Plan of Care: Type 1 insulin-dependent diabetes mellitus Hemoglobin A1c 6.9%. Blood glucose levels have fluctuated from hypoglycemia to hyperglycemia and ranging from as low as 58 and as high as 312 over the past 24 hours. Patient placed on glycemic protocol with [id number] glucose checks to continue every 4 hours. Continue use of home NovoLog pump for optimal control of blood glucose levels. Bilateral lower extremity edema -Order placed for JAMES hose and encourage patient to elevate when not in use. Hypothyroidism Continue levothyroxine 176 mcg daily. Reviewed most recent TSH drawn 03/20/2025 resulting at 3.230 with free T4 of 0.99, and free T3 of 2.30. Iron deficiency anemia Hemoglobin stable at 10.7. Appears stable upon review of chart and at baseline. Continue ferrous sulfate 325 mg daily. Status post induced vaginal delivery on 04/02/2025 Preeclampsia Blood pressures remain slightly elevated, but appears stable. Discussed with patient and RN, if hypertension worsens will start patient on low-dose oral labetalol for optimal control. - management per primary admitting [facility] team. Data and imaging reviewed: As stated above in HPI Thank you for allowing us to participate in the care of this pleasant patient. Do not hesitate to contact us with questions. Someone can be reached from the [facility] hospitalist group all hours of the day at [phone] or via [employer]. Patient was seen independently by Nurse Practitioner. This document was prepared using [employer] dictation software. Please allow for errors in bulk sausage casing tier off while rare they do occur. Donte Yi NP rendered care for this patient independently, reviewed the findings and plan as documented in the note above and agree with plan. I did not physically speak with or examine the patient on this date. Past Medical History Past Medical History: Diabetes Mellitus, Thyroid Disorder History of Any Multi-Drug Resistant Organisms: None Reported Past Surgical History: No Surgical Hx Reported Past Anesthesia/Blood Transfusion Reactions: No Reported Reaction Smoking Status: Never smoker - Past Family History Mother Family Medical History: No Reported History Medications and Allergies Home Medications Medication Instructions Recorded Confirmed Type Ascorbic Acid [Vitamin C] 1,000 mg PO DAILY 03/04/25 04/01/25 History Aspirin [[place] Aspirin EC] 81 mg PO DAILY 03/04/25 04/01/25 History Ferrous Sulfate [Feosol] 325 mg PO DAILY 03/04/25 04/01/25 History Folic Acid 1 mg PO DAILY 03/04/25 04/01/25 History INSULIN ASPART (NovoLOG) [NovoLOG 100 unit SQ-PUMP DAILY MDD 100 03/04/25 04/01/25 History (formulary)] Levothyroxine Sodium [Synthroid] 175 mcg PO DAILY 03/04/25 04/01/25 History Vit No.179/Iron/Folic 1 each PO DAILY 03/04/25 04/01/25 History [ Tablet] Allergies Allergy/AdvReac Type Severity Reaction Status Date / Time Penicillins Allergy Rash/Hives Verified 04/01/25 12:50 Sulfa (Sulfonamide Allergy Rash/Hives Verified 03/04/25 15:50 Antibiotics) Physical Exam Vitals: Vital Signs Temp Pulse Resp BP Pulse Ox 04/03/25 04:00 71 18 144/87 04/02/25 23:56 80 16 143/88 04/02/25 20:00 97.5 F L 85 18 127/80 04/02/25 19:00 86 18 135/79 04/02/25 18:00 93 18 126/84 04/02/25 16:54 83 136/87 04/02/25 16:00 83 18 136/87 04/02/25 15:00 82 18 135/81 04/02/25 14:00 86 18 119/74 04/02/25 13:00 18 117/74 04/02/25 12:00 80 118/78 04/02/25 11:00 97.1 F L 90 18 116/81 96 04/02/25 10:00 82 18 123/83 Intake and Output 04/02/25 04/03/2525 22:59 06:59 14:59 Intake Total 798.333 Output Total 2200 Balance -1401.667 Intake: IV 150 Magnesium Sulfate-Water 150 Pmx 20 gm In Water For Injection 1 500ml.bag @ 2 GM/HR 50 mls/hr IV .Q10H [facility] Rx#:[id number] Intake, IV Titration 648.333 Amount Magnesium Sulfate-Water 648.333 Pmx 20 gm In Water For Injection 1 500ml.bag @ 2 GM/HR 50 mls/hr IV .Q10H [facility] Rx#:[id number] Output: Urine 2200 Results CBC & Chem 7: 04/02/25 06:58 04/01/25 13:05 Labs: Abnormal Lab Results - Last 24 Hours (Table) 04/02/25 04/02/25 Range/Units 14:57 18:55 POC Glucose (mg/dL) 225 H 150 H (70-110) mg/dL
--- NOTE | 2025-04-04 11:39 | P.DS ---
Providers Date of admission: 04/01/25 13:38 Expected date of discharge: 04/04/25 Attending physician: Cande Rouse MD Consults: 04/02/25 08:14 Consult Physician Routine Consulting Provider: Victor Manuel Tavarez Consult Reason/Comments: Type I diabetes management Do you want consulting provider notified?: Yes Primary care physician: Stated None - Discharge Diagnosis(es) (1) Normal spontaneous vaginal delivery Current Visit: Yes Status: Acute Hospital Course: The patient is a 39-year-old 4 para 3-0-0-3 admitted at 37 and 4 days by good dating parameters. She is admitted with a diagnosis of preeclampsia with severe features as well as type 1 diabetes and polyhydramnios. Estimated weight is at the 90th percentile for gestational age based on a 32-week ultrasound. Patient is also known to be Rh- and received RhoGAM at 28 weeks. On labor and delivery, all signs are reassuring with a category 1 heart rate tracing. On labor delivery, the patient had Pitocin augmentation started and underwent artificial rupture of membranes. Magnesium sulfate prophylaxis was started for the diagnosis of preeclampsia. She made progress through the active phase to complete and then pushed to a normal spontaneous vaginal delivery of a viable 12 pound 0 ounce baby boy with Apgars of 5 at 1 minute and 8 at 5 minutes. There was a moderate shoulder dystocia for which she had Aron maneuver, suprapubic pressure, and delivery of the posterior shoulder to reduce it. Her course was complicated by labile blood pressures for the first 24 to 48 hours and internal medicine was consulted to help manage her blood sugars as well as hypothyroid concerns. Her blood pressures by post day #2 were relatively stable in the 140s over 80s and remained so through the night. She was deemed stable for discharge on day #3 and was discharged home to follow-up in the office in 6 weeks time routinely. Discharge instructions included calling for any significantly increased bleeding or foul-smelling lochia, significantly increased fever abdominal pain, perineal complaints, breast complaints, or anything else of concern to her. She was additionally instructed to have nothing in the vagina for at least 6 weeks time to include intercourse. She understood her instructions and agrees to follow-up as noted above. Discharge medications included continued vitamins as she wishes to breast-feed. She was otherwise to use [id number] analgesic pain medications as needed. She does have an insulin pump and will be continued on that and any other further medication additions or changes will be determined by internal medicine. Maternal blood type is O- and cord blood was sent for evaluation for the necessity of RhoGAM prior to discharge. Rubella status is immune. Procedures: #1. Magnesium sulfate prophylaxis #2. Pitocin augmentation #3. Artificial rupture of membranes #4. Normal spontaneous vaginal delivery #5. Repair of perineal laceration #6. Internal medicine consultation Patient Condition at Discharge: Stable Plan - Discharge Summary New Discharge Prescriptions: No Action Ferrous Sulfate [Feosol] 325 mg PO DAILY Vit No.179/Iron/Folic [ Tablet] 1 each PO DAILY Levothyroxine Sodium [Synthroid] 175 mcg PO DAILY Aspirin [[place] Aspirin EC] 81 mg PO DAILY INSULIN ASPART (NovoLOG) [NovoLOG (formulary)] 100 unit SQ-PUMP DAILY MDD 100 Ascorbic Acid [Vitamin C] 1,000 mg PO DAILY Folic Acid 1 mg PO DAILY Discharge Medication List Ascorbic Acid [Vitamin C] 1,000 mg PO DAILY 03/04/25 [History] Aspirin [[place] Aspirin EC] 81 mg PO DAILY 03/04/25 [History] Ferrous Sulfate [Feosol] 325 mg PO DAILY 03/04/25 [History] Folic Acid 1 mg PO DAILY 03/04/25 [History] INSULIN ASPART (NovoLOG) [NovoLOG (formulary)] 100 unit SQ-PUMP DAILY MDD 100 03/04/25 [History] Levothyroxine Sodium [Synthroid] 175 mcg PO DAILY 03/04/25 [History] Vit No.179/Iron/Folic [ Tablet] 1 each PO DAILY 03/04/25 [History] Follow up Appointment(s)/Referral(s): Cesar Branham MD [STAFF PHYSICIAN] - 1 Week (Please call and schedule appointment for establishment of care with PCP) Cande Rouse MD [STAFF PHYSICIAN] - 6 Weeks (6 week 05/14/2025 @1:45Pm) Discharge Disposition: HOME SELF-CARE
[2025-04-04 14:08] VITALS: RESP 20
--- NOTE | 2025-04-04 17:35 | P.PN ---
Subjective Progress Note Date: 04/04/25 Hospital course: Patient is a very pleasant 39-year-old female with a past medical history of type 1 diabetes mellitus, hypothyroidism, and is a G-4, P-0, T-4, A-0, L-4 status post induced vaginal delivery on 04/02/2025 of a 12 pound 4 ounce baby boy. Patient reports she was treated for mild preeclampsia with slightly elevated blood pressures and proteinuria. We were consulted for management of patient's type 1 diabetes and hypothyroidism throughout hospitalization. Patient seen and fully evaluated this morning. She was visiting with her son in the special care nursery. She currently reports feeling well and denies having any headache, lightheadedness, dizziness, chest pain, palpitations, shortness of breath, cough or congestion, nausea, vomiting, or any other complaints. Patient reports mild swelling remains in her lower extremities but denies pain or discomfort. She states appetite is good and she is tolerating oral intake. Patient reports ambulating without any difficulties since discontinuation of magnesium infusion. Patient reports urinating without any difficulty and states she has not yet had a bowel movement since delivery. Vital signs reviewed. Blood pressure 142/89, heart rate 78, respiratory rate 18, temp 97.6 F, and SpO2 of 97% on room air. Labs reviewed. CBC showing mild leukocytosis with WBC count of 13.94 and stable anemia with hemoglobin of 10.7. Blood glucose levels have ranged from [address] up to 312 over the past 24 hours. BUN 9, creatinine 0.56 and GFR greater than 90. Hemoglobin A1c 6.9%. Liver profile normal findings with exception of elevated LDH of 247. Urinalysis negative for infection. Physical exam: Vital signs reviewed and stable. General: Nontoxic, no distress and appears stated age. Derm: Skin warm and dry, normal coloration for ethnicity. Head: Atraumatic, normocephalic and symmetric. Eyes: EOM's intact, no lid lag, and anicteric sclera Mouth: no lip lesions, mucus membranes moist Cardiovascular: regular rate and rhythm with normal S1S2, no murmur, positive posterior tibial pulses bilaterally, and cap refill < 2 seconds. Lungs: Respirations even, regular, and unlabored on room air. Lungs CTA bilaterally, no rhonchi, no rales, no wheezing, and no accessory muscle usage. Abdominal: abdomen, soft distended 1+ pitting bilateral lower extremity Ext: ROM intact. No gross muscle atrophy, 1+ pitting bilateral lower extremity edema, no contractures Neuro: Speech clear, face symmetrical and CN II-XII grossly intact with no noted focal neuro deficits Psych: Alert and oriented to person, place, time, and situation. Appropriate and pleasant affect. Assessment and Plan of Care: Type 1 insulin-dependent diabetes mellitus Hemoglobin A1c 6.9%. Blood glucose levels have fluctuated from hypoglycemia to hyperglycemia and ranging from as low as 58 and as high as 312 over the past 24 hours. Continue glycemic protocol with [id number] glucose checks to continue every 4 hours. Continue use of home NovoLog pump for optimal control of blood glucose levels. Bilateral lower extremity edema -Order placed for JAMES hose and encourage patient to elevate when not in use. Hypothyroidism Continue levothyroxine 176 mcg daily. Reviewed most recent TSH drawn 03/20/2025 resulting at 3.230 with free T4 of 0.99, and free T3 of 2.30. Iron deficiency anemia Hemoglobin stable at 10.7. Appears stable upon review of chart and at baseline. Continue ferrous sulfate 325 mg daily. Status post induced vaginal delivery on 04/02/2025 Preeclampsia Blood pressures improved throughout the night but remain slightly with systolic pressure 130s to 140s. Patient denies having any headache, lightheadedness, dizziness, chest pain, shortness of breath, or any other complaints. - management per primary admitting DEMAND MANAGER team. Data and imaging reviewed: Morning glucose 99. Patient did have episode of hypoglycemia overnight with blood glucose decreasing to 63, patient drank orange juice with increase of blood sugar to 85. 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 Patient has Dexcom and insulin pump in place and monitor his blood glucose levels closely. Vital signs reviewed. Blood pressure 147/84, heart rate 94, respiratory rate 18, temp 97.9 F, and SpO2 of 98% on room air. Thank you for allowing us to participate in the care of this pleasant patient. Do not hesitate to contact us with questions. Someone can be reached from the [facility] hospitalist group all hours of the day at [phone] or via [employer]. Patient was seen independently by Nurse Practitioner. This document was prepared using Dragon dictation software. Please allow for errors in human resource analyst while rare they do occur. Donte Yi WAREHOUSE SUPERVISOR 3RD SHIFT rendered care for this patient independently, reviewed the findings and plan as documented in the note above and agree with plan. I did not physically speak with or examine the patient on this date. Objective - Vital Signs Vital signs: Vital Signs Temp 97.3 F L 04/04/25 04:00 Pulse 63 04/04/25 04:00 Resp 16 04/04/25 04:00 BP 134/87 04/04/25 04:00 Pulse Ox 95 04/04/25 04:00 FiO2 - Labs CBC & Chem 7: 04/02/25 06:58 04/01/25 13:05
[2025-04-04 18:17] VITALS: BP 142/84; PULSE 90; TEMP 97.6
== END 2025-04-04 18:00 | disposition home or self-care (01) | DRG 807 ==
LOC: FBPOP 12:38 → 4FBP 13:38
PROVIDERS: ADMIT Obstetrics & Gynecology; ATTEND Obstetrics & Gynecology
PROC: 10E0XZZ Delivery of Products of Conception, External Approach (ICD-10-PCS; principal; 2025-04-01)
PROC: 3E033VJ Introduction of Other Hormone into Peripheral Vein, Percutaneous Approach (ICD-10-PCS; principal; 2025-04-01)
PROC: 10S0XZZ Reposition Products of Conception, External Approach (ICD-10-PCS; principal; 2025-04-01)
PROC: 10907ZC Drainage of Amniotic Fluid, Therapeutic from Products of Conception, Via Natural or Artificial Opening (ICD-10-PCS; principal; 2025-04-01)
PROC: 0KQM0ZZ Repair Perineum Muscle, Open Approach (ICD-10-PCS; principal; 2025-04-01)
DX: O14.14 Severe pre-eclampsia complicating childbirth (principal); Z37.0 Single live birth; O24.02 Pre-existing type 1 diabetes mellitus, in childbirth; E10.649 Type 1 diabetes mellitus with hypoglycemia without coma; E03.9 Hypothyroidism, unspecified; D72.829 Elevated white blood cell count, unspecified; D50.9 Iron deficiency anemia, unspecified; O40.3XX0 Polyhydramnios, third trimester, not applicable or unspecified; O99.284 Endocrine, nutritional and metabolic diseases complicating childbirth; O66.0 Obstructed labor due to shoulder dystocia; O70.1 Second degree perineal laceration during delivery; O90.81 Anemia of the puerperium; Z79.4 Long term (current) use of insulin; E10.65 Type 1 diabetes mellitus with hyperglycemia; R74.02 Elevation of levels of lactic acid dehydrogenase [LDH]; Z96.41 Presence of insulin pump (external) (internal); Z3A.37 37 weeks gestation of pregnancy; Z67.41 Type O blood, Rh negative; Z79.82 Long term (current) use of aspirin; Z79.890 Hormone replacement therapy; Z88.0 Allergy status to penicillin; Z88.2 Allergy status to sulfonamides
CPT/HCPCS: 59025; 81003; 82565; 82570; 83036; 83615; 84156; 84450; 84460; 84520; 84550; 85025; 85461; 86850; 86870; 86900; 86901